=== PATIENT | female | born 1955 | race American Indian/Alaskan Native ===

== ENCOUNTER 2017-06-03 14:46 | Emergency (ER) | payer OTHER, SELFPAY ==
[2017-06-03 15:44] LABS: Hematocrit 39.7 % (30.3-42.9); Hemoglobin 12.6 gm/dl (10.1-14.3); Mean Corpuscular HGB Conc 32 % (30-34); Mean Corpuscular Hemoglobin 27 pg (28-32); Mean Corpuscular Volume 85 fl (79-97); Platelet Count 227 K/mm3 (140-440); Red Blood Count 4.67 M/mm3 (3.65-5.03); Red Cell Distribution Width 13.8 % (13.2-15.2); White Blood Count 7.3 K/mm3 (4.5-11.0)
[2017-06-03 15:56] LABS: Bilirubin,Urine NEG (Negative); Blood,Urine NEG (Negative); Ketones,Urine NEG (Negative); Leukocyte Esterase,Urine NEG (Negative); Nitrite,Urine NEG (Negative); Protein,Urine <15 mg/dL mg/dL (Negative); Urobilinogen,Urine < 2.0 mg/dL (<2.0)
[2017-06-03 15:58] LABS: Anion Gap 19 mmol/L; BUN/Creatinine Ratio 17; Blood Urea Nitrogen 10 mg/dL (7-17); Calcium 9.6 mg/dL (8.4-10.2); Carbon Dioxide 26 mmol/L (22-30); Chloride 100.5 mmol/L (98-107); Glucose 100 mg/dL (65-100); Sodium 141 mmol/L (137-145)
--- NOTE | 2017-06-03 16:17 | XRay Report ---
AP CHEST : 06/03/17 14:46:00 CLINICAL: Chest pain. COMPARISON:09/20/12 FINDINGS: Normal heart and pulmonary vessels. The lungs are normally expanded and clear. The bones and soft tissues are unremarkable. IMPRESSION: Normal chest.
[2017-06-03] MEDS ORDERED: ASPIRIN PO ONE (17:00)
[2017-06-03] MEDS ORDERED: NACL 0.9% 1000 ML 1,000 ML IV ONE ×2 (17:01→21:49)
--- NOTE | 2017-06-03 17:08 | Emergency Department Report ---
ED Chest Pain HPI - General Chief Complaint: Chest Pain Stated Complaint: CHEST PAIN Time Seen by Provider: 06/03/17 16:16 Source: patient, EMS Mode of arrival: Stretcher Limitations: No Limitations - History of Present Illness MD Complaint: chest pain -: This morning Onset: during rest Pain Location: epigastric Pain Radiation: none Severity scale (0 -10): 7 Worsens With: nothing Context: other (pt states she worked out. Pt states she has not been drinking much water and had 2 cups of coffee today. pt states she saw her pcp at [facility]anue[facility] who sent her here due to her heart rate . pt states she did not have an aspirin today.) Other Symptoms: denies: cough, syncope, palpitations - Related Data Allergies Allergy/AdvReac Type Severity Reaction Status Date / Time No Known Allergies Allergy Unverified 06/03/17 15:13 Heart Score - HEART Score History: Slightly suspicious EKG: Non-specific Age: 45-65 Risk factors: 1-2 risk factors Troponin: < normal limit HEART Score: 3 ED Review of Systems ROS: Stated complaint: CHEST PAIN Other details as noted in HPI Constitutional: denies: chills, fever Eyes: denies: eye pain, eye discharge, vision change ENT: denies: ear pain, throat pain Respiratory: denies: cough, shortness of breath, wheezing Cardiovascular: chest pain, palpitations Gastrointestinal: denies: abdominal pain, nausea, diarrhea Genitourinary: denies: urgency, dysuria, discharge Musculoskeletal: denies: back pain, joint swelling, arthralgia Skin: denies: rash, lesions Neurological: denies: headache, weakness, paresthesias Psychiatric: denies: anxiety, depression ED Past Medical Hx - Past Medical History Hx Hypertension: Yes Hx Diabetes: Yes (prediabetic per pt) - Social History Smoking Status: Never Smoker ED Physical Exam - General Limitations: No Limitations General appearance: alert, in no apparent distress - Head Head exam: Present: atraumatic - Eye Eye exam: Present: normal appearance, PERRL, EOMI - ENT ENT exam: Present: normal exam, normal orophraynx, mucous membranes moist - Neck Neck exam: Present: normal inspection - Respiratory Respiratory exam: Present: normal lung sounds bilaterally - Cardiovascular Cardiovascular Exam: Present: tachycardia, normal heart sounds. Absent: clicks , JVD, S3, S4 - GI/Abdominal GI/Abdominal exam: Present: soft. Absent: distended, tenderness, guarding - Extremities Exam Extremities exam: Present: normal inspection - Back Exam Back exam: Present: normal inspection - Neurological Exam Neurological exam: Present: alert, oriented X3, CN II-XII intact - Psychiatric Psychiatric exam: Present: normal affect, normal mood - Skin Skin exam: Present: warm, dry, intact ED Course Vital Signs 06/03/17 06/03/17 06/03/17 16:01 16:02 18:55 Temperature 98.6 F Pulse Rate 123 H 114 H Respiratory 16 16 15 Rate Blood Pressure 150/92 149/85 [Left] O2 Sat by Pulse 100 100 99 Oximetry 06/03/17 19:05 Temperature 98.3 F Pulse Rate 114 H Respiratory 16 Rate Blood Pressure 147/89 [Left] O2 Sat by Pulse 100 Oximetry - Reevaluation(s) Reevaluation #1: 06/03/17 21:51 pt states she is feeling better; heart rate has improved but still tachy; awaiting Ct report ED Medical Decision Making - Lab Data Result diagrams: 06/03/17 15:32 06/03/17 15:32 - EKG Data Rate: tachycardia (124) - EKG Data When compared to previous EKG there are: previous EKG unavailable - Medical Decision Making Pt has been stable and heart rate has improved; although not entirely normal . Pt has no complaints. Ct chest neg and normal. Pt denied any known history of thyroid disease and does not exhibit signs or symptoms of it. pt denied any substance abuse and only admits to caffeinated beverages which she states she drinks a lot of. Pt has had 3 neg cardiac enzymes and overall feels better. pt did a self stress by working out after the pain began ; pt had no syncope. Pt was afebrile. Critical care attestation.: If time is entered above; I have spent that time in minutes in the direct care of this critically ill patient, excluding procedure time. ED Disposition Clinical Impression: Chest pain, Tachycardia Disposition: -01 TO HOME OR SELFCARE Condition: Stable Instructions: Chest Pain (ED), Dehydration (ED) Additional Instructions: Return sooner if worse or if further concerns; Be sure to follow up with your primary care doctor or the referral doctor given here ; drink plenty of fluids avoid caffeinated beverages as they may make your heart rate increase and they dehydrate you Referrals: CONTRERAS,KUCHELA, MD [Staff Physician] - [facility]
[2017-06-03] MEDS ORDERED: NACL ONE (18:25)
[2017-06-03 22:59] VITALS: BP 141/83
--- NOTE | 2017-06-04 17:49 | Cat Scan Report ---
FINAL REPORT PROCEDURE: CT angiogram chest. TECHNIQUE: Computerized tomographic angiography of the chest was performed after the IV injection of iodinated nonionic contrast including image processing. The image data was postprocessed using 2-dimensional multiplanar reformatted (MPR) and 3-dimensional (MIP and/or volume rendered) techniques. HISTORY: Tachycardia, chest pain, rule out pulmonary embolism. COMPARISON: No prior studies are available for comparison. FINDINGS: The trachea and central bronchi appear normal. The thoracic aorta has a normal caliber without evidence of dissection. The pulmonary arteries enhance normally. There are no filling defects to indicate pulmonary embolism. There is no mediastinal adenopathy. The heart size is normal. There are no pleural effusions. The lungs are clear and well expanded. The thoracic skeleton appears intact. IMPRESSION: Normal study.
== END 2017-06-04 00:10 | disposition home or self-care (01) ==
LOC: ED 14:46
DX: R00.0 Tachycardia, unspecified (principal); R07.9 Chest pain, unspecified; I10 Essential (primary) hypertension; E11.9 Type 2 diabetes mellitus without complications; R63.8 Other symptoms and signs concerning food and fluid intake
CPT/HCPCS: 36415; 71010; 71275; 80048; 81001; 84484; 85025; 85379; 93005; 93010; 96360; 96361; 99285; J7030; Q9967